=== PATIENT | male | born 1960 ===

== ENCOUNTER 2016-12-06 19:57 | Emergency (ER) | payer MEDICAID, OTHER ==
[2016-12-06 21:03] VITALS: RESP 16; O2SAT 99
[2016-12-06] MEDS ORDERED: Oxycodone/Acetaminophen 5/325 mg Tab PO ONE (21:40)
--- NOTE | 2016-12-06 21:53 | ED PDOC ---
HPI: Back Time Seen by Provider: 12/06/16 21:08 Chief Complaint (Nursing): Back Pain Chief Complaint (Provider): back pain History Per: Patient History/Exam Limitations: no limitations Onset/Duration Of Symptoms: Days (1 month) Current Symptoms Are (Timing): Still Present Exacerbating Factor(s): Turning, Movement, Sitting, Standing Additional History Per: Patient Additional Complaint(s): 56 y/o male presents with low back pain x 1 month. Patient notes pain to radiate down both legs, R>L; with intermittent tingling to toes. No relief with Tylenol. Denies fever, nausea/vomiting, bowel/bladder incontinence. 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 Past Medical History Reviewed: Historical Data, Nursing Documentation, Vital Signs Vital Signs: Last Vital Signs Temp 98.0 F 12/06/16 20:58 Pulse 77 12/06/16 20:58 Resp 16 12/06/16 20:58 BP 153/92 H 12/06/16 20:58 Pulse Ox 99 12/06/16 20:58 - Medical History PMH: No Chronic Diseases - Surgical History Surgical History: No Surg Hx - Family History Family History: States: Unknown Family Hx - Home Medications Home Medications: Ambulatory Orders Medication Instructions Recorded Cyclobenzaprine [Cyclobenzaprine 10 mg PO BID PRN #10 tab 12/07/16 HCl] Lidocaine 5% [Lidoderm] 1 patch TOP DAILY #5 patch 12/07/16 traMADol [Ultram] 50 mg PO Q8 PRN #12 tab 12/07/16 - Allergies Allergies/Adverse Reactions: Allergies Allergy/AdvReac Type Severity Reaction Status Date / Time ibuprofen [From Motrin] Allergy ANAPHYLAXIS Verified 12/06/16 21:03 Review of Systems ROS Statement: Except As Marked, All Systems Reviewed And Found Negative Musculoskeletal: Positive for: Back Pain, Leg Pain Physical Exam - Reviewed Nursing Documentation Reviewed: Yes Vital Signs Reviewed: Yes - Physical Exam Appears: Positive for: Well, Non-toxic, No Acute Distress Head Exam: Positive for: ATRAUMATIC, NORMAL INSPECTION, NORMOCEPHALIC Skin: Positive for: Normal Color Eye Exam: Positive for: Normal appearance ENT: Positive for: Normal ENT Inspection Cardiovascular/Chest: Positive for: Regular Rate, Rhythm Respiratory: Positive for: Normal Breath Sounds Gastrointestinal/Abdominal: Positive for: Normal Exam Back: Positive for: Decreased ROM (secondary to pain), Other (+ right straight leg raise). Negative for: L CVA Tenderness, R CVA Tenderness, Vertebral Tenderness, Muscle Spasm Extremity: Positive for: Normal ROM Neurologic/Psych: Positive for: Alert, Oriented - ECG O2 Sat by Pulse Oximetry: 99 - Progress ED Course And Treament: xray, percocet PO, flexeril PO On re-eval, patient sleeping; upon waking up notes some improvement of pain. Patient educated on findings, discharged with rx tramadol, flexeril, lidoderm. Advised follow up PMD 2-3 days. Return to ED for worsening/concerning symptoms. Disposition - Clinical Impression Clinical Impression: Low back pain, Sciatica - Patient ED Disposition Is Patient to be Admitted: No Counseled Patient/Family Regarding: Studies Performed, Diagnosis, Need For Followup, Rx Given - Disposition Referrals: [facility] [Outside] Disposition: Routine/Home Disposition Time: 00:03 Condition: IMPROVED Prescriptions: Cyclobenzaprine [Cyclobenzaprine HCl] 10 mg PO BID PRN #10 tab PRN Reason: Muscle Spasm Lidocaine 5% [Lidoderm] 1 patch TOP DAILY #5 patch traMADol [Ultram] 50 mg PO Q8 PRN #12 tab PRN Reason: Pain, Moderate (4-7) Instructions: Sciatica (ED), Back Pain (ED) Print Language: MALDIVIAN
[2016-12-07 00:44] VITALS: BP 137/72; PULSE 71; TEMP 98.3
--- NOTE | 2016-12-07 09:05 | RAD ---
PROCEDURE: Radiographs of the Lumbar Spine. HISTORY: low back pain COMPARISON: No prior. FINDINGS: BONES: Normal alignment. No listhesis. No fracture. DISC SPACES: Unremarkable. OTHER FINDINGS: None. IMPRESSION: No evidence of acute pathology. [id number] constipation.
== END 2016-12-07 00:22 | disposition home or self-care (01) ==
LOC: H.ER 19:57
DX: M54.40 Lumbago with sciatica, unspecified side (principal)

== ENCOUNTER 2016-12-20 11:36 | Emergency (ER) | payer OTHER ==
[2016-12-20 12:14] VITALS: TEMP 98
--- NOTE | 2016-12-20 13:10 | ED PDOC ---
HPI: Abdomen Time Seen by Provider: 12/20/16 12:32 Chief Complaint (Nursing): GI Problem Chief Complaint (Provider): Abdominal Pain History Per: Patient Additional Complaint(s): Patient is a 56 yo male, no PMH, presents to ED with complaints of having lower back pain for 1 month radiating down legs. patient states he is allergic to motrin only, took advil at 3am. Grady bowel or bladder dysfunction. Contrary to triage note, Pt without any complaint sof rectal bleeding at this time. Past Medical History Reviewed: Nursing Documentation, Vital Signs Vital Signs: Last Vital Signs Temp 98 F 12/20/16 12:11 Pulse 78 12/20/16 12:11 Resp 18 12/20/16 12:11 BP 150/90 12/20/16 12:11 Pulse Ox 100 12/20/16 13:10 - Medical History PMH: No Chronic Diseases - Surgical History Surgical History: No Surg Hx - Family History Family History: States: Unknown Family Hx - Living Arrangements Living Arrangements: With Family - Social History Current smoker - smoking cessation education provided: No Alcohol: None Drugs: Denies - Home Medications Home Medications: Ambulatory Orders Medication Instructions Recorded Cyclobenzaprine [Cyclobenzaprine 10 mg PO BID PRN #10 tab 12/07/16 HCl] Lidocaine 5% [Lidoderm] 1 patch TOP DAILY #5 patch 12/07/16 traMADol [Ultram] 50 mg PO Q8 PRN #12 tab 12/07/16 Ibuprofen [Motrin] 600 mg PO Q6 #20 tab 12/20/16 - Allergies Allergies/Adverse Reactions: Allergies Allergy/AdvReac Type Severity Reaction Status Date / Time ibuprofen [From Motrin] Allergy ANAPHYLAXIS Verified 12/06/16 21:03 Review of Systems ROS Statement: Except As Marked, All Systems Reviewed And Found Negative Musculoskeletal: Positive for: Back Pain Physical Exam - Reviewed Nursing Documentation Reviewed: Yes Vital Signs Reviewed: Yes - Physical Exam Appears: Positive for: Well, Non-toxic, No Acute Distress Head Exam: Positive for: ATRAUMATIC, NORMAL INSPECTION, NORMOCEPHALIC Skin: Positive for: Normal Color, Warm, DRY Eye Exam: Positive for: EOMI, Normal appearance, PERRL ENT: Positive for: Normal ENT Inspection Neck: Positive for: Normal, Painless ROM Cardiovascular/Chest: Positive for: Regular Rate, Rhythm Respiratory: Positive for: CNT, Normal Breath Sounds Gastrointestinal/Abdominal: Positive for: Normal Exam, Bowel Sounds, Soft Back: Positive for: Normal Inspection Extremity: Positive for: Normal ROM Neurologic/Psych: Positive for: Alert, Oriented - Laboratory Results Result Diagrams: 12/20/16 13:29 12/20/16 13:29 - ECG O2 Sat by Pulse Oximetry: 100 Medical Decision Making Medical Decision Making: CBC and COMP resulted WNL UA (+) RBC CT ordered to assess for possible renal colic. Pt medicated with 2 mg Morphine IV on re-eval, after reports pf increased pain. CT resulted negative. Pt educated on results and demonstrated full understanding. Disposition - Clinical Impression Clinical Impression: Sciatica - Patient ED Disposition Is Patient to be Admitted: No - Disposition Disposition: Routine/Home Disposition Time: 18:51 Condition: STABLE Prescriptions: Ibuprofen [Motrin] 600 mg PO Q6 #20 tab Instructions: Back Pain (ED) - POA Present On Arrival: None
[2016-12-20] MEDS ORDERED: Oxycodone/Acetaminophen 5/325 mg Tab PO STA (13:11)
[2016-12-20] MEDS ORDERED: Oxycodone/Acetaminophen 5/325 mg Tab ONE (13:22)
[2016-12-20 13:45] LABS: ALB/GLOB RATIO 1.3 (1.0-2.1); ALKALINE PHOSPHATASE 61 U/L (38-126); ALT/SGPT 31 U/L (21-72); AST/SGOT 24 U/L (17-59); BILIRUBIN,TOTAL 0.5 mg/dl (0.2-1.3); BLOOD UREA NITROGEN 9 mg/dl (9-20); CALCIUM 9.4 mg/dL (8.4-10.2); CARBON DIOXIDE 29 mmol/L (22-30); CHLORIDE 105 mmol/L (98-107); GFR AFRICAN-AMERICAN > 60; GLUCOSE,RANDOM 97 mg/dL (75-110); POTASSIUM 4.2 MMOL/L (3.6-5.0); SODIUM 142 mmol/l (132-148); TOTAL PROTEIN 7.3 G/DL (6.3-8.2)
[2016-12-20 13:52] LABS: BASO % 0.8 % (0.0-2.0); EOS # 0.2 K/uL (0.0-0.7); EOS % 4.2 % (0.0-4.0); LYMPH # 1.7 K/uL (1.0-4.3); LYMPH % 29.6 % (20.0-40.0); MEAN CELL VOLUME 88.9 fl (80.0-94.0); MEAN CORPUSCULAR HGB CONC 33.8 g/dL (33.0-37.0); MEAN PLATELET VOLUME 7.1 fl (7.2-11.7); MONO # 0.8 K/uL (0.0-0.8); MONO % 13.8 % (0.0-10.0); NEUT # 2.9 K/uL (1.8-7.0); NEUT % 51.6 % (50.0-75.0); NRBC % 0.1 % (0.0-0.0); RED CELL DISTRIBUTION WIDTH 13.7 % (11.5-14.5); WHITE BLOOD COUNT 5.7 K/uL (4.8-10.8)
[2016-12-20 15:50] LABS: RBC URINE 6 /hpf (0-3); URINE BILIRUBIN NEGATIVE (NEGATIVE); URINE BLOOD NEGATIVE (NEGATIVE); URINE COLOR YELLOW (YELLOW); URINE GLUCOSE (UA) NEG (Normal); URINE KETONE NEGATIVE (NEGATIVE); URINE LEUKOCYTE ESTERASE NEG Leu/uL (Negative); URINE PROTEIN NEGATIVE (NEGATIVE); URINE UROBILINOGEN 0.2-1.0 mg/dL (0.2-1.0); WBC URINE 1 /hpf (0-5)
--- NOTE | 2016-12-20 17:19 | CT ---
PROCEDURE: CT Abdomen and Pelvis without intravenous contrast HISTORY: r/o renal stone COMPARISON: None. TECHNIQUE: Unenhanced study. Neither oral nor intravenous contrast administered. Radiation dose: Total exam DLP = 501.69 mGy-cm. This CT exam was performed using one or more of the following dose reduction techniques: Automated exposure control, adjustment of the mA and/or kV according to patient size, and/or use of iterative reconstruction technique. FINDINGS: LOWER THORAX: Unremarkable. LIVER: Unremarkable. No gross lesion or ductal dilatation. GALLBLADDER AND BILE DUCTS: Unremarkable. PANCREAS: Unremarkable. No gross lesion or ductal dilatation. SPLEEN: Unremarkable. ADRENALS: Unremarkable. No mass. KIDNEYS AND URETERS: Unremarkable. No hydronephrosis. No solid mass. Incidental finding(s): Upper pole cyst left kidney 5.3 x 4.4 cm. VASCULATURE: Unremarkable. No aortic aneurysm. BOWEL: Unremarkable. No obstruction. No gross mural thickening. APPENDIX: Unremarkable. Normal appendix. PERITONEUM: Unremarkable. No free fluid. No free air. LYMPH NODES: Unremarkable. No enlarged lymph nodes. BLADDER: Unremarkable. REPRODUCTIVE: Unremarkable. BONES: No acute fracture. OTHER FINDINGS: None. IMPRESSION: No significant or acute findings to account for/ related to the clinical presentation. Additional benign and/or incidental findings described above.
[2016-12-20 18:49] VITALS: BP 147/82; PULSE 70; RESP 16
[2016-12-20 18:51] VITALS: O2SAT 100
== END 2016-12-20 18:49 | disposition home or self-care (01) ==
LOC: H.ER 11:36
DX: M54.30 Sciatica, unspecified side (principal)

== ENCOUNTER 2017-03-15 08:08 | Emergency (ER) | payer MEDICAID, OTHER ==
[2017-03-15 08:13] VITALS: BP 161/97; PULSE 82; RESP 20; TEMP 98.4; O2SAT 98
[2017-03-15 09:03] LABS: URINE BACTERIA RARE (<OCC); URINE BILIRUBIN NEGATIVE (NEGATIVE); URINE BLOOD NEGATIVE (NEGATIVE); URINE CLARITY SLIGHTY-CLOUDY (Clear); URINE COLOR YELLOW (YELLOW); URINE GLUCOSE (UA) NEG (Normal); URINE LEUKOCYTE ESTERASE TRACE Leu/uL (Negative); URINE NITRATE NEGATIVE (NEGATIVE); URINE PROTEIN NEGATIVE (NEGATIVE); URINE UROBILINOGEN 0.2-1.0 mg/dL (0.2-1.0)
--- NOTE | 2017-03-15 09:16 | ED PDOC ---
HPI: Male Pain Time Seen by Provider: 03/15/17 08:37 Chief Complaint (Nursing): Male Genitourinary Chief Complaint (Provider): penile lesion History Per: Patient History/Exam Limitations: no limitations Current Symptoms Are (Timing): Still Present Severity: Mild Quality Of Discomfort: Burning Associated Symptoms: Urinary Symptoms. denies: Fever, Chills, Nausea Alleviating Factors: None Additional Complaint(s): 57yo male states having burning discharge from penile lesion- states many years ago he caught his penis in his zipper, which caused injury, since then had a "bump" at the site, now recently has become foul smelling and draining. He is sexually active with his , denies fever, discharge from penile meatus, or back pain. Past Medical History Reviewed: Historical Data, Nursing Documentation, Vital Signs Vital Signs: Last Vital Signs Temp 98.4 F 03/15/17 08:12 Pulse 82 03/15/17 08:12 Resp 20 03/15/17 08:12 BP 161/97 H 03/15/17 08:12 Pulse Ox 98 03/15/17 08:20 - Medical History PMH: No Chronic Diseases - Family History Family History: States: Unknown Family Hx - Living Arrangements Living Arrangements: With Family - Social History Current smoker - smoking cessation education provided: No - Home Medications Home Medications: Ambulatory Orders Medication Instructions Recorded Cyclobenzaprine [Cyclobenzaprine 10 mg PO BID PRN #10 tab 12/07/16 HCl] Lidocaine 5% [Lidoderm] 1 patch TOP DAILY #5 patch 12/07/16 traMADol [Ultram] 50 mg PO Q8 PRN #12 tab 12/07/16 Ibuprofen [Motrin] 600 mg PO Q6 #20 tab 12/20/16 Ciprofloxacin [Cipro] 500 mg PO BID #14 tab 03/15/17 Mupirocin 2% Ointment [Bactroban 1 appl TP BID #1 tube 03/15/17 Ointment] - Allergies Allergies/Adverse Reactions: Allergies Allergy/AdvReac Type Severity Reaction Status Date / Time ibuprofen [From Motrin] Allergy ANAPHYLAXIS Verified 03/15/17 08:20 Review of Systems ROS Statement: Except As Marked, All Systems Reviewed And Found Negative Constitutional: Negative for: Fever, Chills Respiratory: Negative for: Cough, Shortness of Breath Gastrointestinal: Negative for: Nausea, Vomiting, Abdominal Pain Genitourinary Male: Positive for: Penile Pain (mild). Negative for: Dysuria, Frequency, Incontinence, Hematuria, Penile Discharge, Scrotal Pain, Other Skin: Negative for: Rash, Lesions Neurological: Negative for: Weakness, Numbness Physical Exam - Reviewed Nursing Documentation Reviewed: Yes Vital Signs Reviewed: Yes - Physical Exam Appears: Positive for: Well, Non-toxic Head Exam: Positive for: ATRAUMATIC Skin: Positive for: Normal Color, Warm Respiratory: Negative for: Respiratory Distress Male Genital Exam: Positive for: lesions (ventral shaft of penis area skin overgrowth with central necrosis and granulation tissue w slight malodorous discharge. ). Negative for: bleeding, testicular tenderness (R), testicular tenderness (L), urethral discharge Neurologic/Psych: Positive for: Alert, Oriented, Gait (normal). Negative for: Motor/Sensory Deficits - ECG O2 Sat by Pulse Oximetry: 98 Medical Decision Making Medical Decision Making: UA TR leuks Wound culture performed, start cipro and tailor to culture. Will need urology eval for excision of chronic lesion. Disposition - Clinical Impression Clinical Impression: Penile lesion Counseled Patient/Family Regarding: Studies Performed - Disposition Referrals: Isaac Schroeder MD [Staff Provider] - Disposition: Routine/Home Disposition Time: 09:18 Condition: STABLE Additional Instructions: See urologist for excision of lesion on your penis. Take antibiotics as directed, followup culture results (available in 2-3 days) Return to ER for any new or worsening symptoms. Prescriptions: Ciprofloxacin [Cipro] 500 mg PO BID #14 tab Mupirocin 2% Ointment [Bactroban Ointment] 1 appl TP BID #1 tube Forms: [employer] (Algerian)
== END 2017-03-15 09:54 | disposition home or self-care (01) ==
LOC: H.ER 08:08
DX: N50.9 Disorder of male genital organs, unspecified (principal)